=== PATIENT | male | born 1970 | race Caucasian/White ===

== ENCOUNTER → 2019-01-07 08:04 | Outpatient (CLI) | payer SELFPAY ==
--- NOTE | 2019-01-07 | DI.RAD.S_ITS ---
PROCEDURE: XR CHEST 2V INDICATIONS: PRE TRAVEL ASSESMENT TECHNIQUE: 2 views of the chest were acquired. COMPARISON: None. FINDINGS: Surgical changes and devices: None. Lungs and pleura: Lungs are clear. No pleural effusions or pneumothorax. Mediastinum: Mediastinal contours are normal. Heart size is normal. Bones and chest wall: No suspicious bony abnormalities. Soft tissues appear unremarkable. IMPRESSION: Normal for age. No prior or active disease is suspected. Dictated by: Tang Baugh M.D. on 01/07/2019 at 9:12 Approved by: Tang Baugh M.D. on 01/07/2019 at 9:57
[2019-01-07 10:05] LABS: Cholesterol 203 mg/dL (140-199); HDL Cholesterol 42 mg/dL (40-60); LDL Cholesterol Calculated 130 mg/dL (<100); Triglycerides 154 mg/dL (35-150)
[2019-01-07 15:51] LABS: HIV 1 and 2 Antibody NEGATIVE (NEGATIVE)
== END ==
PROVIDERS: Visit Provider Physician Assistant
DX: Z41.8 Encounter for other procedures for purposes other than remedying health state (principal); Z71.89 Other specified counseling
CPT/HCPCS: 36415; 71046; 80061; 86703; 86900; 86901

== ENCOUNTER → 2019-01-09 08:27 | Outpatient (CLI) | payer SELFPAY ==
[2019-01-11 14:59] LABS: Rubeola Measles IgG < 25.00 AU/mL (< 25.00)
== END ==
PROVIDERS: Visit Provider Physician Assistant
DX: Z41.8 Encounter for other procedures for purposes other than remedying health state (principal); Z71.89 Other specified counseling
CPT/HCPCS: 36415; 86765